=== PATIENT | male | born 1945 | race Caucasian/White ===

== ENCOUNTER 2019-04-25 04:56 | Inpatient (IN) | payer MEDICARE, BC ==
[~2019-04-25] VITALS: Ht 177.8 cm; Wt 127.0 kg
[2019-04-25] MEDS ORDERED: ANESTHESIA TRAY IN PYXIS 1 EA TRAY MC ONE (06:06)
[2019-04-25] MEDS ORDERED: BACITRACIN 50000 UNITS/VIAL ONE (06:06)
[2019-04-25] MEDS ORDERED: MIDAZOLAM HCL 2 MG/2ML VIAL ONE (06:22)
[2019-04-25] MEDS ORDERED: FENTANYL PF 250MCG/5ML AMPUL ONE (06:22)
[2019-04-25] MEDS ORDERED: FENTANYL PF 100MCG/2ML AMPUL ONE (06:23)
[2019-04-25] MEDS ORDERED: ROCURONIUM BROMIDE 50 MG/5 ML ONE (06:24)
[2019-04-25] MEDS ORDERED: FAMOTIDINE/PF INJ 20 MG/2 ML VIAL IV ONE (06:24)
[2019-04-25] MEDS ORDERED: MEPERIDINE HCL/PF 100 MG/ML DISP.SYRIN ONE (06:24)
[2019-04-25] MEDS ORDERED: BUPIVACAINE 0.25% 75 MG/30 ML VIAL ONE (06:25)
[2019-04-25] MEDS ORDERED: TRANEXAMIC ACID 3,000 MG in SODIUM CHLORIDE IRRIG SOLUTION 70 ML IR ONE (09:30)
--- NOTE | 2019-04-25 11:20 | NUR ---
MS PRODUCTION SUPPORT CONSULTANT NOTES RECEIVED PT FROM PACU VIA BED. PT AWAKE, A/O X4. PT TOLERATING RA, WITH NO ACUTE RESPIRATORY DISTRESS NOTED. PT DENIES ANY PAIN OR DISCOMFORT AT THIS TIME. DR EVANS/PAIN MANAGEMENT MD SEEN AND EVALUATED PT, ORDERS PLACED AND PT AND SPOUSE AWARE OF ORDERS. SKIN ASSESSMENT DON, PICTURES TAKEN AND FILED IN THE CHART. PT S/P RIGHT TOTAL SHOULDER ARTHROPLASTY, DRESSINGS INTACT WITH NO DRAINAGE NOTED. RIGHT ARM SLING WITH IMMOBILIZER PRESENT WITH THE PT. PT AND AT BEDSIDE ABLE TO PROVIDED HISTORY. PIV TO LEFT WRIST G18, FLUSHED WITH NS, INTACT AND OPERATIONAL. VITALS STABLE AND RECORDED. PT KEPT COMFORTABLE IN BED. CALL LIGHT KEPT WITHIN REACH. WILL CONTINUE PLAN OF CARE.
[2019-04-25] MEDS ORDERED: oxyCODONE IR immediate release 5 MG PO ONE (11:27)
[2019-04-25] MEDS ORDERED: MAG HYDROX/AL HYDROX/SIMETH 30 ML UDC PO PRN (11:30)
[2019-04-25] MEDS ORDERED: diphenhydrAMINE HCL 25 MG CAPSULE PO PRN (11:30)
[2019-04-25] MEDS ORDERED: ONDANSETRON HCL/PF 4 MG/2 ML VIAL IV PRN (11:30)
[2019-04-25] MEDS ORDERED: FAMOTIDINE (20 MG) 20 MG TABLET PO SCH (11:30)
[2019-04-25] MEDS ORDERED: HYDROMORPHONE 1 MG/1 ML DISP.SYRIN SQ PRN (11:30)
[2019-04-25] MEDS ORDERED: PANTOPRAZOLE 40 MG TABLET.DR PO ONE (11:39)
[2019-04-25] MEDS: PANTOPRAZOLE 40 MG TABLET.DR PO SCH ×2 (12:00→22:17)
[2019-04-25] MEDS ORDERED: METHOCARBAMOL (750MG) 750 MG TABLET PO PRN (12:00)
[2019-04-25] MEDS ORDERED: DOCUSATE SODIUM 250 MG CAPSULE PO PRN (13:00)
[2019-04-25] MEDS ORDERED: ACETAMINOPHEN 325 MG TABLET PO PRN (13:00)
[2019-04-25] MEDS ORDERED: SENNOSIDES 8.6 MG TABLET PO PRN (13:00)
[2019-04-25] MEDS ORDERED: BISACODYL SUPP (10 MG) 10 MG/SUPP.RECT SUPP.RECT RC PRN (13:30)
[2019-04-25] MEDS ORDERED: ZOLPIDEM TARTRATE 5 MG TABLET PO PRN (13:30)
[2019-04-25] MEDS: IV D5/0.45 NACL 1,000 ML IV PRN (14:49)
[2019-04-25] MEDS: ANCEF 1 GM/50 ML D5W IV SCH ×4 (15:55→22:17)
[2019-04-25] MEDS: oxyCODONE IR immediate release 5 MG PO PRN ×3 (16:12→22:17)
--- NOTE | 2019-04-25 16:15 | NUR ---
MS RN NOTES PT REQUESTED OXY 10MG FOR PAIN MANAGEMENT AND PER DR EVANS'S ADVISED TO HAVE PT TAKE IT Q3-4HOURS NEEDED. WILL CONTINUE TO MONITOR.
--- NOTE | 2019-04-25 18:52 | NUR ---
MS RN CLOSING NOTES PT REMAINS IN BED, AWAKE, A/O X4, AMBULATORY. PT TOLERATING RA, WITH NO ACUTE RESPIRATORY DISTRESS NOTED. RIGHT ARM SLING WITH IMMOBILIZER PRESENT WITH THE PT. IVF D5 1/2 NS AT 75 ML/HR TO LEFT WRIST G18, FLUSHED WITH NS, INTACT AND OPERATIONAL. ALL NEEDS AND CARE ATTENDED. PT KEPT COMFORTABLE IN BED. CALL LIGHT KEPT WITHIN REACH. WILL ENDORSE TO INCOMING INDUSTRIAL RELATIONS ANALYST NURSE FOR KELLY.
[2019-04-25] MEDS ORDERED: *INSULIN REGULAR(HUMULIN R)HUM 100 UNIT/ML VIAL SQ PRN (19:30)
[2019-04-25] MEDS ORDERED: DEXTROSE 50%-WATER 50 ML DISP.SYRIN IV PRN (19:30)
[2019-04-25] MEDS ORDERED: INSULIN REGULAR, HUMAN 100 UNIT/ML 3 ML VIAL SQ PRN (19:30)
--- NOTE | 2019-04-25 19:35 | NUR ---
MS RN OPENING NOTES PATIENT RECEIVED RESTING IN BED A/O X 4 WITH AT BEDSIDE. STABLE ON RA WITH BREATHING EVEN AND UNLABORED, NO SOB NOTED. NO SIGNS OF ACUTE DISTRESS. NO CURRENT COMPLAINTS OF PAIN OR DISCOMFORT. R ARM SLING IN PLACE. IV LOCATED ON L WRIST #18 RUNNING D5 1/2 NS. SAFETY PRECAUTIONS IN PLACE WITH BED IN LOWEST POSITION, CALL LIGHT WITHIN REACH, SIDE RAILS UP, AND BREAKS. WILL CONTINUE TO MONITOR.
[2019-04-25 20:00] VITALS: BP 109/64
[2019-04-25] MEDS: BLOOD SUGAR DIAGNOSTIC 1 EACH STRIP VI SCH (22:30)
[2019-04-25 22:31] VITALS: BP 83/41
[2019-04-26 01:17] LABS: BASOPHILS % (AUTO) 0.3 % (0.0-2.0); EOSINOPHILS % (AUTO) 0.6 % (0.0-6.0); HEMATOCRIT 46 % (39-51); HEMOGLOBIN 15.3 g/dL (13.5-17.5); LYMPHOCYTES # (AUTO) 1.5 /CMM (0.8-4.8); LYMPHOCYTES % (AUTO) 10.9 % (20.0-44.0); MEAN CORPUSCULAR HGB CONC 33 g/dl (31.0-36.0); MEAN CORPUSCULAR VOLUME 91 fL (80-96); MONOCYTES # (AUTO) 1.5 /CMM (0.1-1.30); MONOCYTES % (AUTO) 10.8 % (2.0-12.0); NEUTROPHILS % (AUTO) 77.4 % (43.0-81.0); PLATELET COUNT (AUTO) 198 /CMM (150-450); RED BLOOD CELL COUNT(AUTO) 5.09 MIL/uL (4.5-6.0); WHITE BLOOD COUNT (AUTO) 14.2 K/uL (4.3-11.0)
--- NOTE | 2019-04-26 01:58 | NUR ---
MS RN NOTES CBC ORDERED STAT- PATIENT H&H WNL HGB 15.3 HCT 46. NO BLOOD TRANSFUSION NEEDED. WILL CONTINUE TO MONITOR.
[2019-04-26] MEDS: oxyCODONE IR immediate release 5 MG PO PRN ×5 (02:38→15:04)
[2019-04-26] MEDS ORDERED: ONDANSETRON HCL/PF 4 MG/2 ML VIAL IV ONE (06:02)
[2019-04-26] MEDS: BLOOD SUGAR DIAGNOSTIC 1 EACH STRIP VI SCH ×2 (06:35→12:23)
--- NOTE | 2019-04-26 06:38 | NUR ---
MS RN CLOSING NOTES PATIENT CURRENTLY RESTINGI N BED A/O X 4 WITH AT BEDSIDE. STABLE ON RA BREATHING EVEN AND UNLABORED, NO SOB NOTED. NO SIGNS FO ACUTE DISTRESS. PAIN WAS MANAGED THROUGHOUT THE NIGHT. IV LOCATED ON L WRIST # 18 D5 1/2 NS @ 75 ML/ HR. ALL NEEDS ATTENDED TO THROUGHOUT THE NIGHT, PATIENT WAS KEPT CLEAN AND DRY. SAFETY PRCAUTIONS IN PLACE WITH BED IN LOWEST POSITION, CALL LIGHT WITHIN REACH, BREAKS ON, AND SIDE RAILS UP. WILL ENDORSE TO ONCOMING SHIFT ABOUT KELLY.
--- NOTE | 2019-04-26 07:20 | NUR ---
MS RN OPENING NOTES RECEIVED PT IN BED, AWAKE, A/O X4, AMBULATORY. PT TOLERATING RA, WITH NO ACUTE RESPIRATORY DISTRESS NOTED. PT CONCERNED OF GOING HOME TODAY. RIGHT ARM SLING WITH IMMOBILIZER PRESENT WITH THE PT. IVF D5 1/2 NS AT 75 ML/HR TO LEFT WRIST G18, FLUSHED WITH NS, INTACT AND OPERATIONAL. PT KEPT COMFORTABLE IN BED. CALL LIGHT KEPT WITHIN REACH. WILL CONTINUE TO MONITOR.
[2019-04-26 08:00] VITALS: BP 129/56
[2019-04-26] MEDS: HYDROMORPHONE 1 MG/1 ML DISP.SYRIN IV PRN ×2 (10:07→13:14)
[2019-04-26] MEDS ORDERED: ALBU8.5H8 PO (10:52)
[2019-04-26] MEDS ORDERED: LIOT25TA13 PO (10:52)
[2019-04-26] MEDS ORDERED: IRBE150T28 PO (10:52)
[2019-04-26] MEDS ORDERED: PANT40VI PO (10:52)
[2019-04-26] MEDS ORDERED: CLOP75TA15 PO (10:52)
[2019-04-26] MEDS ORDERED: METO25TA4 PO (10:52)
[2019-04-26] MEDS ORDERED: TRIA1TAB3 PO (10:52)
[2019-04-26] MEDS ORDERED: METF-442 PO (10:52)
[2019-04-26] MEDS: IV D5/0.45 NACL 1,000 ML IV PRN (10:55)
--- NOTE | 2019-04-26 15:24 | NUR ---
MS MARRIAGE THERAPIST NOTES PT A/O X4, AMBULATORY. PT TOLERATING RA, WITH NO ACUTE RESPIRATORY DISTRESS NOTED. PT CONCERNED OF GOING HOME TODAY. RIGHT ARM SLING WITH IMMOBILIZER PRESENT WITH THE PT. PT TO DISCHARGE TO HOME WITH . PT AND SPOUSE PRESENT AT BEDSIDE REVIEWED AND SIGNED DISCHARGE PAPERS ANG INVENTORY LIST. ALL BELONGINGS WITH THE PT. PIV TO LEFT HAND REMOVED, APPLIED DRESSING. ALL NEEDS AND CARE ATTENDED. VITALS STABLE. PT AND SPOUSE HAPPY WITH THE CARE PROVIDED. ORTHO CLEARANCE WITH NUBIA/LEVON YANEZ OBTAINED VIA PHONE. CN/FIDELINA AWARE. HOSPITALIST/MELANIE AWARE OF DISCHARGE WELL. HAND DRAWER IN HELPER ESCORTED PT VIA WHEELCHAIR TO THE LOBBY. PT LEFT THE UNIT AT 1525.
[2019-04-26] MEDS ORDERED: LIOTHYRONINE SODIUM (25 MCG) 25 MCG TABLET PO SCH (17:00)
[2019-04-26] MEDS ORDERED: MAXZIDE TABLET 1 UDTAB TABLET PO SCH (17:00)
[2019-04-26] MEDS ORDERED: TRIAMTERENE/HYDROCHLOROTHIAZID (37.5/25MG) 1 UDCAP PO SCH (17:00)
[2019-04-27] MEDS ORDERED: LOSARTAN POTASSIUM 50 MG TABLET PO SCH (09:00)
[2019-04-27] MEDS ORDERED: CLOPIDOGREL BISULFATE 75 MG TABLET PO SCH (09:00)
[2019-04-27] MEDS ORDERED: METOPROLOL SUCCINATE 25 MG TAB.SR.24H PO SCH (09:00)
[2019-04-27] MEDS ORDERED: IRBESARTAN (150MG) 150 MG TABLET PO SCH (09:00)
== END 2019-04-26 15:15 | disposition home health service (06) | DRG 483 ==
LOC: DS 04:56 → MED 11:51
PROVIDERS: ADMIT Internal Medicine; ATTEND Internal Medicine
PROC: 0RRJ0JZ Replacement of Right Shoulder Joint with Synthetic Substitute, Open Approach (ICD-10-PCS; principal; 2019-04-25)
DX: M19.011 Primary osteoarthritis, right shoulder (principal); Z68.41 Body mass index [BMI] 40.0-44.9, adult; F11.20 Opioid dependence, uncomplicated; E66.01 Morbid (severe) obesity due to excess calories; E11.9 Type 2 diabetes mellitus without complications; J44.9 Chronic obstructive pulmonary disease, unspecified; I10 Essential (primary) hypertension; G47.33 Obstructive sleep apnea (adult) (pediatric); E78.5 Hyperlipidemia, unspecified; E03.9 Hypothyroidism, unspecified; Z87.01 Personal history of pneumonia (recurrent); G89.4 Chronic pain syndrome; Z91.19 Patient's noncompliance with other medical treatment and regimen; M48.9 Spondylopathy, unspecified
CPT/HCPCS: 36415; 82962-TC; 85025-TC; 86850-TC; 86921-TC; 87081-TC; 88305-TC; 88311-TC; A4565; A6209; C1713; C1776; G0378; J0690; J1170; J1815; J2175; J2250; J2405; J2704; J2710; J2765; J3010; J3490; J7060

== ENCOUNTER 2023-09-21 05:27 | Day surgery (SDC) | payer MEDICARE, BC ==
[~2023-09-21 05:27] MED LIST: ALBU8.5H8 PO; CLOP75TA15 PO; IRBE150T28 PO; LIOT25TA13 PO; METF-442 PO; METO25TA4 PO; PANT40VI PO; TRIA1TAB3 PO
[2023-09-21] MEDS ORDERED: LABETALOL HCL IV 100MG VIAL ONE (05:52)
[2023-09-21] MEDS ORDERED: MIDAZOLAM HCL 2 MG/2ML VIAL ONE (05:52)
[2023-09-21] MEDS ORDERED: ANESTHESIA TRAY IN PYXIS 1 EA TRAY MC ONE (05:52)
[2023-09-21] MEDS ORDERED: BUPIVACAINE 0.5 % PF 150 MG/30 ML VIAL ONE (05:52)
[2023-09-21] MEDS ORDERED: FENTANYL PF 100MCG/2ML AMPUL ONE (05:52)
== END 2023-09-21 09:35 | disposition home or self-care (01) ==
LOC: DS 05:27
PROVIDERS: ATTEND Specialist
DX: G56.01 Carpal tunnel syndrome, right upper limb (principal); G56.21 Lesion of ulnar nerve, right upper limb; M65.132 Other infective (teno)synovitis, left wrist; I10 Essential (primary) hypertension; E78.5 Hyperlipidemia, unspecified; J44.9 Chronic obstructive pulmonary disease, unspecified; Z79.82 Long term (current) use of aspirin; Z98.890 Other specified postprocedural states; Z79.899 Other long term (current) drug therapy
CPT/HCPCS: 25115; 64718; 64721; 82962; A4565; A6402; J1100; J1885; J2250; J2405; J2704; J3010; J3490

== ENCOUNTER 2023-10-10 18:25 | Inpatient (IN) | payer MEDICARE, BC ==
[~2023-10-10] VITALS: Ht 177.8 cm; Wt 140.2 kg
[2023-10-10 19:21] VITALS: O2SAT 99
[2023-10-10 20:18] LABS: BASOPHILS # (AUTO) 0.1 K/uL (0.0-0.2); BASOPHILS % (AUTO) 0.6 % (0.0-2.0); EOSINOPHILS # (AUTO) 0.2 K/uL (0.0-0.7); EOSINOPHILS % (AUTO) 1.3 % (0.0-6.0); HEMATOCRIT 43 % (39-51); HEMOGLOBIN 14.7 g/dL (13.5-17.5); LYMPHOCYTES # (AUTO) 1.4 K/uL (0.8-4.8); LYMPHOCYTES % (AUTO) 11.4 % (20.0-44.0); MEAN CORPUSCULAR HEMOGLOBIN 31 PG (26.0-33.0); MEAN CORPUSCULAR HGB CONC 35 g/dl (31.0-36.0); MEAN CORPUSCULAR VOLUME 89 fL (80-96); MONOCYTES # (AUTO) 1.2 K/uL (0.1-1.30); MONOCYTES % (AUTO) 9.5 % (2.0-12.0); NEUTROPHILS # (AUTO) 9.4 K/uL (1.8-8.9); NEUTROPHILS % (AUTO) 77.2 % (43.0-81.0); PLATELET COUNT (AUTO) 200 K/uL (150-450); RED BLOOD CELL COUNT(AUTO) 4.78 MIL/uL (4.5-6.0); RED CELL DISTRIBUTION WIDTH 13.9 % (11.5-15.0); WHITE BLOOD COUNT (AUTO) 12.2 K/uL (4.3-11.0)
[2023-10-10 20:42] LABS: INR 0.97 (0.91-1.10); PARTIAL THROMBOPLASTIN TIME 31.2 SEC (24.3-34.3); PROTHROMBIN TIME 10.3 SECS (9.2-11.1)
[2023-10-10 20:47] LABS: CALCIUM, SERUM 9.1 mg/dL (8.5-10.1); CARBON DIOXIDE 28 mmol/L (21-32); CHLORIDE 99 mmol/L (98-107); CREATININE 0.9 mg/dL (0.6-1.3); GLUCOSE 92 mg/dL (74-106); POTASSIUM 3.9 mmol/L (3.5-5.1); SODIUM SERUM 138 mmol/L (136-145); UREA NITROGEN, BLOOD 16 mg/dL (7-18)
[2023-10-10] MEDS ORDERED: PIPERACI/TAZO 3.375GM/D5W 50ML PB IV ONE (21:03)
[2023-10-10] MEDS: PIPERACILLIN /TAZOBACTAM 3.375 G in IV D5W 50 ML IV ONE (21:03)
[2023-10-10 21:04] LABS: LACTIC ACID 1.4 mmol/L (0.4-2.0)
[2023-10-10 21:11] LABS: ALANINE AMINOTRANSFERASE 32 U/L (12-78); ALBUMIN 3.4 g/dL (3.4-5.0); ALKALINE PHOSPHATASE 74 U/L (46-116); ASPARTATE AMINOTRANSFERASE 16 U/L (15-37); BILIRUBIN,DIRECT 0.2 mg/dL (0.0-0.2); BILIRUBIN,TOTAL 0.7 mg/dL (0.2-1.0); TOTAL PROTEIN, SERUM 7.5 g/dL (6.4-8.2)
[2023-10-10 22:13] VITALS: BP 148/89; TEMP 98.4
[2023-10-10 22:20] VITALS: BP 148/89; TEMP 98.4; O2SAT 97
[2023-10-10] MEDS ORDERED: ONDANSETRON HCL/PF 4 MG/2 ML VIAL IVP PRN (22:30)
[2023-10-10] MEDS ORDERED: ALBUTEROL FS 2.5 MG/3 ML VIAL.NEB NEB PRN (22:30)
[2023-10-10] MEDS ORDERED: ACETAMINOPHEN 325 MG TABLET PO PRN (22:30)
[2023-10-10] MEDS ORDERED: Z GUARD REMEDY 4 OZ OINT TP PRN (22:30)
[2023-10-10] MEDS ORDERED: MAG HYDROX/AL HYDROX/SIMETH 30 ML UDC PO PRN (22:30)
[2023-10-10] MEDS ORDERED: MAGNESIUM HYDROXIDE 30 ML UDC PO PRN (22:30)
[2023-10-10] MEDS ORDERED: ZOLPIDEM TARTRATE 5 MG TABLET PO PRN (22:30)
[2023-10-11] MEDS: HYDROCODONE/APAP 10/325MG TABLET PO PRN ×2 (04:16→20:01)
[2023-10-11] MEDS ORDERED: PIPERACI/TAZO 3.375GM/D5W 50ML PB IV ONE (06:28)
[2023-10-11] MEDS: ZOSYN IVPB 3.375 G in IV D5W 50ml IV SCH (06:31)
[2023-10-11 07:12] LABS: BASOPHILS % (AUTO) 0.4 % (0.0-2.0); EOSINOPHILS # (AUTO) 0.2 K/uL (0.0-0.7); EOSINOPHILS % (AUTO) 1.8 % (0.0-6.0); HEMATOCRIT 42 % (39-51); HEMOGLOBIN 14.1 g/dL (13.5-17.5); LYMPHOCYTES # (AUTO) 1.2 K/uL (0.8-4.8); MEAN CORPUSCULAR HEMOGLOBIN 30 PG (26.0-33.0); MEAN CORPUSCULAR HGB CONC 34 g/dl (31.0-36.0); MEAN CORPUSCULAR VOLUME 90 fL (80-96); MONOCYTES # (AUTO) 1.1 K/uL (0.1-1.30); MONOCYTES % (AUTO) 11.7 % (2.0-12.0); NEUTROPHILS # (AUTO) 7.1 K/uL (1.8-8.9); NEUTROPHILS % (AUTO) 74.1 % (43.0-81.0); PLATELET COUNT (AUTO) 205 K/uL (150-450); RED BLOOD CELL COUNT(AUTO) 4.63 MIL/uL (4.5-6.0); RED CELL DISTRIBUTION WIDTH 13.7 % (11.5-15.0); WHITE BLOOD COUNT (AUTO) 9.7 K/uL (4.3-11.0)
[2023-10-11 07:29] LABS: ALANINE AMINOTRANSFERASE 24 U/L (12-78); ALBUMIN 3.1 g/dL (3.4-5.0); ALKALINE PHOSPHATASE 66 U/L (46-116); ASPARTATE AMINOTRANSFERASE 21 U/L (15-37); BILIRUBIN,DIRECT 0.2 mg/dL (0.0-0.2); BILIRUBIN,TOTAL 0.7 mg/dL (0.2-1.0); CALCIUM, SERUM 8.9 mg/dL (8.5-10.1); CARBON DIOXIDE 28 mmol/L (21-32); CHLORIDE 101 mmol/L (98-107); CREATININE 0.9 mg/dL (0.6-1.3); GLUCOSE 124 mg/dL (74-106); MAGNESIUM 2.2 mg/dL (1.8-2.4); PHOSPHORUS 4.5 mg/dL (2.5-4.9); POTASSIUM 3.7 mmol/L (3.5-5.1); SODIUM SERUM 138 mmol/L (136-145); TOTAL PROTEIN, SERUM 6.9 g/dL (6.4-8.2); UREA NITROGEN, BLOOD 16 mg/dL (7-18)
[2023-10-11 07:40] VITALS: BP 137/70; TEMP 98.2; O2SAT 94
[2023-10-11] MEDS ORDERED: HYDR-3980 PO (08:00)
[2023-10-11] MEDS ORDERED: ASPI-1169 PO (08:00)
[2023-10-11] MEDS ORDERED: FLUT10.62 IH (08:00)
[2023-10-11 08:27] VITALS: BP 138/71; TEMP 98.2; O2SAT 98
[2023-10-11] MEDS: CLOPIDOGREL BISULFATE 75 MG TABLET PO SCH (08:41)
[2023-10-11] MEDS: METFORMIN 500 MG TABLET PO SCH (08:41)
[2023-10-11] MEDS: PANTOPRAZOLE 40 MG VIAL IV SCH (08:41)
[2023-10-11] MEDS: ENOXAPARIN SODIUM 40 MG/0.4 ML DISP.SYRIN SQ SCH (08:43)
[2023-10-11] MEDS: LIOTHYRONINE SODIUM (25 MCG) 25 MCG TABLET PO SCH (08:48)
[2023-10-11] MEDS: LOSARTAN POTASSIUM 50 MG TABLET PO SCH (08:49)
[2023-10-11] MEDS: METOPROLOL SUCCINATE 25 MG TAB.SR.24H PO SCH (08:51)
[2023-10-11] MEDS: TRIAMTERENE/HYDROCHLOROTHIAZID (37.5/25MG) 1 UDCAP PO SCH (09:07)
[2023-10-11 16:20] VITALS: BP 123/64; TEMP 97.5; O2SAT 94
[2023-10-12 07:19] LABS: BASOPHILS # (AUTO) 0.1 K/uL (0.0-0.2); BASOPHILS % (AUTO) 0.6 % (0.0-2.0); EOSINOPHILS # (AUTO) 0.2 K/uL (0.0-0.7); EOSINOPHILS % (AUTO) 2.5 % (0.0-6.0); HEMATOCRIT 45 % (39-51); HEMOGLOBIN 15.2 g/dL (13.5-17.5); LYMPHOCYTES # (AUTO) 1.6 K/uL (0.8-4.8); MEAN CORPUSCULAR HEMOGLOBIN 31 PG (26.0-33.0); MEAN CORPUSCULAR HGB CONC 34 g/dl (31.0-36.0); MEAN CORPUSCULAR VOLUME 90 fL (80-96); MONOCYTES # (AUTO) 0.9 K/uL (0.1-1.30); MONOCYTES % (AUTO) 10.4 % (2.0-12.0); NEUTROPHILS # (AUTO) 5.8 K/uL (1.8-8.9); NEUTROPHILS % (AUTO) 67.5 % (43.0-81.0); PLATELET COUNT (AUTO) 217 K/uL (150-450); RED BLOOD CELL COUNT(AUTO) 4.97 MIL/uL (4.5-6.0); RED CELL DISTRIBUTION WIDTH 13.6 % (11.5-15.0); WHITE BLOOD COUNT (AUTO) 8.6 K/uL (4.3-11.0)
[2023-10-12 07:23] LABS: ALANINE AMINOTRANSFERASE 22 U/L (12-78); ALBUMIN 3.2 g/dL (3.4-5.0); ALKALINE PHOSPHATASE 70 U/L (46-116); ASPARTATE AMINOTRANSFERASE 16 U/L (15-37); BILIRUBIN,TOTAL 0.6 mg/dL (0.2-1.0); CALCIUM, SERUM 9.6 mg/dL (8.5-10.1); CARBON DIOXIDE 29 mmol/L (21-32); CHLORIDE 100 mmol/L (98-107); CREATININE 0.8 mg/dL (0.6-1.3); GLUCOSE 122 mg/dL (74-106); MAGNESIUM 2.4 mg/dL (1.8-2.4); PHOSPHORUS 4.8 mg/dL (2.5-4.9); SODIUM SERUM 134 mmol/L (136-145); TOTAL PROTEIN, SERUM 7.5 g/dL (6.4-8.2); UREA NITROGEN, BLOOD 14 mg/dL (7-18)
[2023-10-12 08:00] VITALS: BP 161/68; TEMP 98.1; O2SAT 94
[2023-10-12] MEDS: PANTOPRAZOLE 40 MG TABLET.DR PO SCH (08:33)
[2023-10-12 08:38] VITALS: BP 161/68
[2023-10-12] MEDS ORDERED: CLIN300C12 PO (09:36)
== END 2023-10-12 12:20 | disposition home or self-care (01) | DRG 863 ==
LOC: ER 18:29 → MED 21:51
PROVIDERS: ADMIT Nurse Practitioner Family; ATTEND Nurse Practitioner Acute Care
DX: T81.41XA Infection following a procedure, superficial incisional surgical site, initial encounter (principal); L03.113 Cellulitis of right upper limb; Z68.41 Body mass index [BMI] 40.0-44.9, adult; Y83.8 Other surgical procedures as the cause of abnormal reaction of the patient, or of later complication, without mention of misadventure at the time of the procedure; Y92.89 Other specified places as the place of occurrence of the external cause; E66.9 Obesity, unspecified; I25.10 Atherosclerotic heart disease of native coronary artery without angina pectoris; E11.9 Type 2 diabetes mellitus without complications; I10 Essential (primary) hypertension; Z85.828 Personal history of other malignant neoplasm of skin; L40.9 Psoriasis, unspecified; Z98.890 Other specified postprocedural states; Z79.51 Long term (current) use of inhaled steroids; Z79.84 Long term (current) use of oral hypoglycemic drugs; Z79.02 Long term (current) use of antithrombotics/antiplatelets; Z79.899 Other long term (current) drug therapy
CPT/HCPCS: 36415; 71045-TC; 73080-TC; 80048-TC; 80053-TC; 80076-TC; 83605-TC; 83735-TC; 84100-TC; 84443-TC; 84484-TC; 85025-TC; 85730-TC; 87040-TC; 93971-TC; G0378; J1650; J2470; J2543; J7040; J7060